=== PATIENT | female | born 1970 | race African-American/Black ===

== ENCOUNTER 2023-03-04 09:43 | Emergency (ER) | payer MEDICAID ==
[~2023-03-04] VITALS: Ht 165.1 cm; Wt 78.9 kg
[~2023-03-04 09:43] MED LIST: CEPH500C2 MT; IBUP-2029 MT; TOPUD MT
[2023-03-04 09:48] VITALS: O2SAT 100
[2023-03-04] MEDS ORDERED: TETANUS, DIPHTHERIA, PERTUSSIS VAC/PF 0.5ML (>10YR OLD) IM ONE (10:30)
[2023-03-04 10:43] VITALS: BP 145/75; PULSE 62; RESP 18; TEMP 98.5
== END 2023-03-04 10:46 | disposition home or self-care (01) ==
LOC: ER 09:43
DX: S91.311D Laceration without foreign body, right foot, subsequent encounter (principal); X58.XXXD Exposure to other specified factors, subsequent encounter
CPT/HCPCS: 90715; 90471; 99283; Z7610 ×3